=== PATIENT | male | born 1960 | race Caucasian/White ===

== ENCOUNTER 2020-10-21 06:45 | Day surgery (SDC) | payer BC ==
[2020-10-17 10:05] VITALS: BMI 42.9
[~2020-10-21 06:45] MED LIST: LACTATED RINGERS 1,000 ML IV SCH; LIDOCAINE 1% (10MG/ML) FOR IV START INTRADERMA PRN
[2020-10-21 07:22] VITALS: TEMP 97.4
[2020-10-21 07:25] LABS: Glucose,Whole Blood 137 mg/dL (75-99)
[2020-10-21] MEDS ORDERED: LABETALOL 5 MG/ML VIAL MDV ONE (07:41)
[2020-10-21] MEDS ORDERED: PROPOFOL 10 MG/ML 20 ML VIAL IV ONE (07:41)
[2020-10-21 08:19] VITALS: RESP 16
--- NOTE | 2020-10-21 08:21 | P.PCN ---
Date of Procedure: 10/21/20 Description of Procedure: BRIEF HISTORY: Patient is a 59-year-old male presenting for outpatient colonoscopy for screening for malignant neoplasm of the colon. He has reported to prior colonoscopies and believes he is at polypectomies in the past. He states the last colonoscopy was in years ago. He denies any abdominal pain but does report blood per rectum. PROCEDURE PERFORMED: Colonoscopy with polypectomy, biopsy and tattoo. PREOPERATIVE DIAGNOSIS: Screening for malignant neoplasm in the colon, he does report a remote colonoscopy in 2 total in the past. ESTIMATED BLOOD LOSS: Minimal. IV sedation per Anesthesia. PROCEDURE: After informed consent was obtained, the patient, was brought into the endoscopy unit. IV sedation was administered by Anesthesia under continuous monitoring. Digital rectal examination was normal. Initially the Olympus CF-190 flexible vi paulie colonoscope was then inserted in the rectum, gradually advanced into the cecum without any difficulty. Careful examination was performed as the scope was gradually being withdrawn. Ileocecal valve and the appendiceal orifice were visualized and appeared normal. Prep was excellent. Mucosa of the cecum, ascending colon, transverse colon, descending colon, sigmoid colon, and rectum appeared normal. 2 diminutive polyps measuring 1-2 mm in size removed with cold forcep polypectomy from the cecum and sigmoid colon. A flat 4 mm transverse colon polyp removed with cold snare polypectomy. In the rectum a 6 cm rectal mass malignant-appearing and encompassing approximately 25% of the lumen was found from 16-10 cm from the anal verge. Multiple biopsies of the mass were taken and tattoos were placed just proximally and just distally as well as adjacent to the mass with 4 mL of ink injected. Retroflexion was not performed secondary to the mass. The patient tolerated the procedure well. IMPRESSION: Large malignant-appearing rectal mass approximately 6 cm in size and encompassing approximately 25% of the lumen biopsied and with tattoos placed proximal and distal to the mass. 2 diminutive polyps in the sigmoid and cecum removed with cold forcep polypectomy. Flat transverse colon polyp removed with cold snare polypectomy. RECOMMENDATIONS: Findings of this examination were discussed with the patient and his family. Okay to resume diet. Okay to resume medications. Await pathology from biopsies and polypectomy. Patient will be given the clinic appointment for follow-up next week for results of biopsies and will likely need referral to oncology and surgery for further evaluation.
[2020-10-21 09:07] VITALS: BP 117/74; PULSE 88
== END 2020-10-21 09:08 | disposition home or self-care (01) ==
LOC: ORWHC2ENDO 06:45
PROVIDERS: ATTEND Internal Medicine
DX: K62.89 Other specified diseases of anus and rectum (principal); K63.5 Polyp of colon; E11.9 Type 2 diabetes mellitus without complications; K08.89 Other specified disorders of teeth and supporting structures; I10 Essential (primary) hypertension; E78.5 Hyperlipidemia, unspecified; F17.210 Nicotine dependence, cigarettes, uncomplicated; Z98.890 Other specified postprocedural states; Z86.010 Personal history of colon polyps; Z88.8 Allergy status to other drugs, medicaments and biological substances; Z79.4 Long term (current) use of insulin; Z79.891 Long term (current) use of opiate analgesic; Z79.899 Other long term (current) drug therapy; Z79.82 Long term (current) use of aspirin; Z96.653 Presence of artificial knee joint, bilateral
CPT/HCPCS: 45380; 45385; 44404; J2704; 88305

== ENCOUNTER → 2020-10-27 | Outpatient (CLI) | payer BC ==
--- NOTE | 2020-10-28 08:00 | CT ---
EXAMINATION TYPE: CT ChestAbdPelvis wo/w con DATE OF EXAM: 10/27/2020 COMPARISON: CT 03/29/2016 HISTORY: malignant neoplasm of rectum, C 20 CT DLP: 4643.50 mGycm Automated exposure control for dose reduction was used. CONTRAST: CT scan of the chest, abdomen and pelvis is performed with Oral Contrast and without and with IV Cont rast, patient injected with 80 mL of Isovue 300. FINDINGS: LUNGS: The lungs are grossly clear, there is no concerning parenchymal mass or nodule identified. T here is no pleural effusion or pneumothorax seen. The tracheobronchial tree is patent. MEDIASTINUM: There are no greater than 1 cm hilar or mediastinal lymph nodes. No pericardial effusi on is seen. There are dense coronary artery calcifications present AORTA: No significant abnormality is seen. OTHER: No additional significant abnormality is seen. LIVER/GB: No significant interval change is appreciated, gallbladder is contracted. Some slight low d ensity is present within the left lobe of the liver along the biliary ducts which is nonspecific and stable PANCREAS: No significant abnormality is seen. SPLEEN: No significant abnormality is seen. ADRENALS: No significant abnormality is seen. KIDNEYS: Cyst has developed in the upper pole the right kidney measuring approximately 4.3 cm, nonobs tructive calculi are seen within the kidneys which are punctate, there is a lower pole cystic focus a t the left kidney measuring 3.7 cm, anteriorly the cyst has increased in size and measures 2.4 cm. REPRODUCTIVE ORGANS: Prostate shows calcifications BOWEL: There is some thickening of the wall seen at the rectum which is thought to have progressed i n the interval. FREE AIR: No Free Air visible. ASCITES: None seen. RETROPERITONEAL ADENOPATHY: No retroperitoneal adenopathy is seen. LYMPH NODES: No greater than 1 cm abdominal or pelvic lymph nodes are appreciated. URINARY BLADDER: Calcification is present within the dependent portion of the urinary bladder to the left of midline near the ureterovesical orifice which is slightly increased in size as compared to p rior measuring approximately 7 mm. PELVIC ADENOPATHY: None visualized. OSSEOUS STRUCTURES: Degenerative disc disease, facet arthropathy noted especially in the lower lumba r spine, lower thoracic spine, multilevel vacuum phenomenon, there is a spinal curvature. IMPRESSION: Findings consistent with rectal carcinoma. Nephrolithiasis is nonobstructive, there is pe rsistent calcification seen at the level of the distal left ureterovesical orifice which is somewhat increased in size as compared to prior, possible nonobstructive calculus
== END | disposition home or self-care (01) ==
LOC: RADCTMAIN 15:40
PROVIDERS: ATTEND Internal Medicine
DX: C20 Malignant neoplasm of rectum (principal); N20.0 Calculus of kidney
CPT/HCPCS: 82565; 84520; 71270; 74178; 36415; Q9967

== ENCOUNTER → 2020-12-16 | Outpatient (CLI) | payer BC ==
--- NOTE | 2020-12-16 17:24 | NM ---
EXAMINATION TYPE: NM bone scan whole body DATE OF EXAM: 12/16/2020 COMPARISON: CT 10/27/2020 HISTORY: Carcinoma rectum Delayed whole-body scanning was performed following the injection of 23.1 mCi Tc 99m MDP. Images acq uired 3 hours post injection. Delayed whole-body scanning was performed with spot images over the [address] and pelvis FINDINGS: Photopenic areas of the knees consistent in the arthroplasties. Soft tissue uptake is normal. There i s a spinal curvature. Uptake within the shoulders, ankles is likely degenerative. There is a bandlike area of uptake present within the approximate T9 vertebral body likely related to significant degene rative changes at this level. No additional areas of abnormal increased or decreased uptake to sugges t metastatic disease. Uptake in the maxilla and mandible is likely due to periodontal disease. IMPRESSION: Degenerative changes. Postop changes.
== END | disposition home or self-care (01) ==
LOC: RADNMMAIN 11:20
PROVIDERS: ATTEND Internal Medicine Hematology & Oncology
DX: C20 Malignant neoplasm of rectum (principal); M47.814 Spondylosis without myelopathy or radiculopathy, thoracic region
CPT/HCPCS: 78306; A9503

== ENCOUNTER 2021-05-26 12:26 | Day surgery (SDC) | payer BC ==
[2021-05-26 12:43] VITALS: BP 138/76; PULSE 63; RESP 16; TEMP 98.9
--- NOTE | 2021-05-26 14:23 | IR ---
Port-A-Cath check HISTORY: Unable to aspirate from port, check prior to chemotherapy infusion, malfunctioning Port-A-Ca th Patient's port was evaluated under real time fluoroscopy. It was elected to withdraw the needle and p laced a new needle with fluoroscopic guidance, maximal barrier technique was utilized. The skin overl flor the port was prepped and draped in a sterile fashion. A Herndon needle was then introduced under f luoroscopic guidance, this procedure performed by the undersigned. Catheter was then aspirated and blood return and the hub of the syringe. Gentle hand injection of con trast material was performed under fluoroscopy, the port filled, catheter filled and the contrast cou rses through the distal end of the port into the superior vena cava. No evident leak, the catheter is patent. 1.8 minutes fluoroscopy time, 192 intraoperative images document the procedure. IMPRESSION: Port was accessed incorrectly on presentation. Port and catheter are patent, intact.
== END 2021-05-26 14:27 | disposition home or self-care (01) ==
LOC: CATHCVL 12:26
PROVIDERS: ATTEND Radiology Diagnostic Radiology
DX: Z45.2 Encounter for adjustment and management of vascular access device (principal)
CPT/HCPCS: 36598